=== PATIENT | female | born 1960 | race Caucasian/White ===

== ENCOUNTER → 2021-05-25 14:08 | Outpatient (CLI) | payer MEDICARE, SELFPAY ==
[2021-05-25 17:15] LABS: Absolute Neutrophil Count 6.1 X10^3/uL (2.0-7.7); Basophil# 0.04 X10^3/uL; Basophil% 0.4 % (0-1); Eosinophil# 0.16 X10^3/uL; Eosinophils% 1.7 % (0-5); Hematocrit 40.2 % (37-47); Hemoglobin 12.6 g/dL (12.0-15.0); Lymphocyte % 22.8 % (19-41); Mean Corp Hgb Conc 31.3 g/dL (32-36); Mean Corpuscular Hgb 29.5 pg (27.0-32.0); Mean Corpuscular Volume 94.1 fL (81-99); Mean Platelet Vol. 10.2 fl (6.2-12.0); Monocyte# 0.76 X10^3/uL; Monocyte% 8.2 % (0-10); NRBC Flagged by Analyzer 0 % (0-5); Neutrophil # 6.11 X10^3/uL (2.7-7.7); Neutrophil % 66.4 % (47-70); Platelet Count 282 K/mm3 (150-450); RBC Distribution Width CV 12.8 % (11.6-14.6); RBC Distribution Width SD 44.2 fl (35.1-43.9); Red Blood Count 4.27 M/mm3 (4.2-5.4); White Blood Count 9.2 K/mm3 (4.4-11.0)
[2021-05-25 17:49] LABS: Anion Gap 6 (5-15); BUN 13 mg/dL (7-18); BUN/Creat Ratio 14.8 RATIO (10-20); Calcium,Total 9.3 mg/dL (8.5-10.1); Chloride 109 mmol/L (98-107); Creatinine, Serum 0.88 mg/dL (0.55-1.02); EST Glomerular Filtration Rate 69 mL/min (>60); Est Glom Filt Rate - Afr Amer 84 mL/min (>60); Glucose 93 mg/dL (74-106); Potassium 3.6 mmol/L (3.5-5.1); Sodium Level 142 mmol/L (136-145)
== END ==
PROVIDERS: PCP Internal Medicine; Visit Provider Internal Medicine Cardiovascular Disease
DX: C50.912 Malignant neoplasm of unspecified site of left female breast (principal); E11.9 Type 2 diabetes mellitus without complications; E66.9 Obesity, unspecified; E78.5 Hyperlipidemia, unspecified; I10 Essential (primary) hypertension; R07.9 Chest pain, unspecified; R94.39 Abnormal result of other cardiovascular function study
CPT/HCPCS: 36415; 80048; 85025

== ENCOUNTER 2022-03-24 15:34 | Emergency (ER) | payer MEDICARE, MEDICAID, SELFPAY ==
[2022-03-24 15:36] VITALS: BP 163/95; PULSE 96; RESP 14; TEMP 36.1; O2SAT 96; BMI 32.9
--- NOTE | 2022-03-24 15:44 | ED.VIS.GI ---
HPI HPI - GI History of Present Illness Chief Complaint: Flank Pain Narrative Narrative: Patient with past medical history of depression, hypertension, hypercholesterolemia, and diabetes presents with left flank pain that began suddenly 3 days ago. She thought she may have pulled a muscle in her flank. It worsened today. She went to the [facility] care where they did a urinalysis and was told she had microscopic blood in her urine. She presents with symptoms of kidney stone pain. She denies any exacerbating or alleviating factors to her left flank pain. No fevers or chills. No nausea or vomiting. No gross hematuria but she may be going more frequently. She denies any problems with bowel movements. [facility] Medical History Abnormal nuclear stress test Cancer of left breast Encounter for screening for COVID-19 Essential hypertension Hyperlipidemia Obesity Type 2 diabetes mellitus Home Medications aspirin 81 mg tablet,delayed release (Adult Low Dose Aspirin) 81 mg PO DAILY 05/24/21 [History Last Taken Unknown] atorvastatin 10 mg tablet 5 mg PO QHS 05/24/21 [History Last Taken Unknown] bupropion HCl 200 mg tablet,12 hr sustained-release (Wellbutrin SR) 200 mg PO BID 05/24/21 [History Last Taken Unknown] buspirone 30 mg tablet 30 mg PO BID 05/24/21 [History Last Taken Unknown] enalapril maleate 5 mg tablet 5 mg PO DAILY 05/24/21 [History Last Taken Unknown] exenatide (Byetta) 5 mcg subcut BID 05/24/21 [History Last Taken Unknown] metoprolol succinate 25 mg tablet,extended release 24 hr 25 mg PO DAILY 05/24/21 [History Last Taken Unknown] vilazodone 40 mg tablet 40 mg PO DAILY 05/24/21 [History Last Taken Unknown] levofloxacin 750 mg tablet 750 mg PO DAILY #7 tabs 03/24/22 [Rx Last Taken Unknown] Allergy/AdvReac Type Severity Reaction Status Date / Time azithromycin Allergy unknown Verified 03/24/22 15:36 Penicillins Allergy unknown Verified 03/24/22 15:36 Sulfa (Sulfonamide Allergy unknown Verified 03/24/22 15:36 Antibiotics) Family History Father Myocardial infarction, Onset Age: 40 CAD (coronary artery disease) Sister CAD (coronary artery disease), Onset Age: 39 Sister CAD (coronary artery disease), Onset Age: 42 Brother Myocardial infarction, Onset Age: 58 Surgical History History of lumpectomy Social History Smoking Status: Former smoker ROS ROS ED ROS Narrative Constitutional: No fever, no chills. HEENT: No sore throat. No neck pain. No loss of vision. No rhinorrhea. Cardiovascular: No chest pain. No palpitations. No pedal edema. Respiratory: No cough, no shortness of breath. Abdominal: No abdominal pain. No nausea. No vomiting. Genitourinary: No dysuria. No gross hematuria. Left flank pain radiating towards front. Musculoskeletal: No myalgias. No arthralgias. Neurologic: No headaches. No dizziness. No lightheadedness. Skin: No rash. No change in color. Psychiatric: No depression. No anxiety. EXAM Physical Exam Narrative Exam Narrative: Afebrile. Vital signs noted. HEENT: Normocephalic. Atraumatic. PERRL, EOMI. Neck soft and supple. No point tenderness or step off. Cardiovascular: Regular rate and rhythm. No murmurs, rubs, or gallops appreciated. Respiratory: No tachypnea. Lungs clear to auscultation bilaterally. Gastrointestinal: Abdomen soft, nontender, with normoactive bowel sounds. No rebound or guarding. Mild tenderness to percussion costovertebral angle, left Neurological: Awake. Alert. Nonfocal, nonlateralizing. Skin: No rash. Normal color. No pallor. Musculoskeletal: No pedal edema. Full range of motion extremities. Const Vital Signs: 03/24/22 15:36 Temperature 96.9 F L Temperature Source Temporal Pulse Rate 96 Respiratory Rate 14 Blood Pressure 163/95 H Blood Pressure Mean 117 Pulse Ox 96 Oxygen Delivery Method Room Air MDM MDM MDM Narrative Medical decision making narrative: Kidney stone work-up was pursued. She was bolused normal saline [address] imaging will be obtained along with CBC and CMP. She was administered ketorolac 15 mg intravenously for analgesia. CBC is grossly normal with a normal white count of 9.0, normal hemoglobin of 12.4, platelet count normal at 273. Electrolyte panel is grossly unremarkable except for slightly elevated chloride of 108. Creatinine 1.1 with a BUN of 11. Her urinalysis macro analysis is negative for ketones. It is negative for nitrites but positive for leukocyte esterase. There is occult blood noted at 25. However, her microanalysis shows 0-5 RBCs with 10-25 WBCs. CAT scan does not show any evidence of ureterolithiasis. The urinary bladder has wall thickening which can be related to contractile state versus cystitis. I will treat her as a cystitis. She has allergies to azithromycin, penicillins, and sulfas, so I wrote her prescription for Levaquin for the next week. At this point in time, I feel she can be discharged safely home with follow-up. Return instructions to the emergency department were reviewed. Disposition is discharged home in stable condition. Lab Data Attestation: I reviewed the patient's lab results. Labs: Laboratory Results - last 24 hr 03/24/22 03/24/22 03/24/22 16:02 16:02 16:30 WBC 9.0 RBC 4.00 L Hgb 12.4 Hct 37.3 MCV 93.3 MCH 31.0 MCHC 33.2 RDW Std Deviation 43.6 RDW Coeff of Raghavendra 12.8 Plt Count 273 MPV 9.7 Immature Gran % (Auto) 0.400 Neut % (Auto) 59.8 Lymph % (Auto) 29.7 Garfield % (Auto) 8.1 Eos % (Auto) 1.4 Baso % (Auto) 0.6 Absolute Neuts (auto) 5.4 Absolute Lymphs (auto) 2.66 Nucleated RBC % 0 Sodium 141 Potassium 3.8 Chloride 108 H Carbon Dioxide 27.0 Anion Gap 6 BUN 11 Creatinine 1.17 H Estim Creat Clear Calc 40.71 Est GFR (MDRD) Af Amer 60 Est GFR (MDRD) Non-Af 50 L BUN/Creatinine Ratio 9.4 L Glucose 132 H Calcium 9.2 Urine Color Yellow Urine Clarity Clear Urine pH 6.0 Ur Specific [place] 1.020 Urine Protein Negative Urine Glucose (UA) Normal Urine Ketones Negative Urine Occult Blood 25 H Urine Nitrite Negative Urine Bilirubin Negative Urine Urobilinogen Normal Ur Leukocyte Esterase 100 H Urine RBC 0-5 SEEN Urine WBC 10-25 SEEN Ur Squamous Epith Cells 0-5 SEEN Urine Bacteria 1+ Urine Mucus 1+ Radiography Diagnostic Testing: Clinical Impression(s) from Imaging Studies Abdomen/Pelvis CT 03/24/22 17:00 IMPRESSION: (NOT LISTED IN ORDER OF SIGNIFICANCE) Urinary bladder wall has wall thickening. This can be related to a partially contractile state. However, a cystitis is not excluded. Urinalysis should be performed in an effort to exclude cystitis. There are calcifications of the abdominal aorta. This is consistent for atherosclerotic disease. There is no abdominal aortic aneurysm. Hysterectomy changes. There is hepatomegaly with diffuse hepatic enlargement. Other findings as above. Electronically Signed: Kenyon Nieto MD at 17:16 EDT , Discharge Plan Triage Chief Complaint: Flank Pain ED Provider: Anthony Coronado Dx/Rx/DC Orders Clinical Impression: Acute left flank pain, Cystitis Instructions: ED Flank Pain, Uncertain Cause, ED CYSTITIS Female Adult Prescriptions: New levofloxacin 750 mg tablet 750 mg PO DAILY Qty: 7 0RF No Action bupropion HCl [Wellbutrin SR] 200 mg tablet sustained-release 12 hr 200 mg PO BID metoprolol succinate 25 mg tablet extended release 24 hr 25 mg PO DAILY buspirone 30 mg tablet 30 mg PO BID enalapril maleate 5 mg tablet 5 mg PO DAILY Byetta 5 mcg/dose (250 mcg/mL) 1.2 mL pen injector 5 mcg subcut BID vilazodone 40 mg tablet 40 mg PO DAILY Rx Instructions: must administer with a meal/food atorvastatin 10 mg tablet 5 mg PO QHS aspirin [Adult Low Dose Aspirin] 81 mg tablet,delayed release (DR/EC) 81 mg PO DAILY Primary Care Provider: Rena Alexander Referrals: Rena Alexander MD [Primary Care Provider] - 3-5 Days if not improving Disposition Disposition: Home, Self Care
[2022-03-24] MEDS: Ketorolac 15 MG/ML Vial IV (16:09)
[2022-03-24] MEDS: 0.9% Normal Saline 1,000 ML 250 ML IV (16:09)
[2022-03-24] MEDS: Morphine 4 MG/ML Syringe IV (16:22)
[2022-03-24 16:30] LABS: Absolute Lymphocyte Count 2.66 X10^3/uL (0.83-4.51); Absolute Neutrophil Count 5.4 X10^3/uL (2.0-7.7); Basophil# 0.05 X10^3/uL; Basophil% 0.6 % (0-1); Eosinophil# 0.13 X10^3/uL; Eosinophils% 1.4 % (0-5); Hematocrit 37.3 % (37-47); Hemoglobin 12.4 g/dL (12.0-15.0); Lymphocyte # 2.66 X10^3/ul (0.83-4.51); Lymphocyte % 29.7 % (19-41); Mean Corp Hgb Conc 33.2 g/dL (32-36); Mean Corpuscular Volume 93.3 fL (81-99); Mean Platelet Vol. 9.7 fl (6.2-12.0); Monocyte# 0.73 X10^3/uL; Monocyte% 8.1 % (0-10); NRBC Flagged by Analyzer 0 % (0-5); Neutrophil # 5.36 X10^3/uL (2.7-7.7); Neutrophil % 59.8 % (47-70); Platelet Count 273 K/mm3 (150-450); RBC Distribution Width CV 12.8 % (11.6-14.6); RBC Distribution Width SD 43.6 fl (35.1-43.9)
[2022-03-24 16:37] LABS: Anion Gap 6 (5-15); BUN 11 mg/dL (7-18); BUN/Creat Ratio 9.4 RATIO (10-20); Calcium,Total 9.2 mg/dL (8.5-10.1); Chloride 108 mmol/L (98-107); Creatinine, Serum 1.17 mg/dL (0.55-1.02); EST Glomerular Filtration Rate 50 mL/min (>60); Est Glom Filt Rate - Afr Amer 60 mL/min (>60); Estimated Creatinine Clearance 40.71 ml/min; Glucose 132 mg/dL (74-106); Potassium 3.8 mmol/L (3.5-5.1); Sodium Level 141 mmol/L (136-145)
[2022-03-24 16:53] LABS: Color, Urine Yellow (Yellow); Glucose, Dipstick Normal (Normal); Ketone-Dipstick Negative (Negative); Leukocyte Esterase-Dipstick 100 /ul (Negative); Nitrite-Dipstick Negative (Negative); Occult Blood-Urine 25 /ul (Negative); Protein-Dipstick Negative (Negative); Urine Bilirubin Dipstick Negative (Negative); Urine Clarity Clear (Clear); Urine Urobilinogen Normal (Normal)
--- NOTE | 2022-03-24 17:00 | CT_ITS ---
STUDY: CT Abdomen And Pelvis W/O Contrast Injection 03/24/2022 5:14 PM REASON FOR EXAM: Female, 62 years old. ABDOMINAL PAIN left flank pain TECHNIQUE: Transaxial images were obtained without oral contrast, and without intravenous contrast. Individualized dose optimization techniques were used for this CT. COMPARISON: None. FINDINGS: The visualized lung bases are unremarkable. The visualized portions of the heart are within normal limits. There is hepatomegaly with diffuse hepatic enlargement. Unremarkable gallbladder and extrahepatic biliary system. Unremarkable spleen. Unremarkable pancreas. Unremarkable bilateral adrenal glands. No acute findings of the right kidney. No acute findings of the left kidney. Unremarkable visualized stomach. Unremarkable small intestine. Unremarkable colon. There is non-visualization of the appendix. There are calcifications of the abdominal aorta. This is consistent for atherosclerotic disease. There is no abdominal aortic aneurysm. Unremarkable inferior vena cava. Subcentimeter mesenteric lymph nodes. Urinary bladder wall has wall thickening. This can be related to a partially contractile state. However, a cystitis is not excluded. Urinalysis should be performed in an effort to exclude cystitis. There is absence of the uterus consistent with a prior hysterectomy. There is an umbilical hernia containing fat. There are diffuse degenerative changes of the visualized lumbar spine. Grade 1 anterolisthesis of L4 on L5. CT/Abdomen/Pelvis without Cont IMPRESSION: (NOT LISTED IN ORDER OF SIGNIFICANCE) Urinary bladder wall has wall thickening. This can be related to a partially contractile state. However, a cystitis is not excluded. Urinalysis should be performed in an effort to exclude cystitis. There are calcifications of the abdominal aorta. This is consistent for atherosclerotic disease. There is no abdominal aortic aneurysm. Hysterectomy changes. There is hepatomegaly with diffuse hepatic enlargement. Other findings as above. Electronically Signed: Kenyon Nieto MD at 17:16 EDT ,
[2022-03-24 17:16] LABS: Red Blood Cells-Urine 0-5 SEEN /hpf (0-5); Squamous Epithelial Cells - UA 0-5 SEEN /hpf (5-10); White Blood Cells 10-25 SEEN /hpf (0-5)
[2022-03-24 17:17] LABS: Bacteria 1+ /hpf (None Seen); Mucous, Urine 1+ /hpf (<or=2+)
[2022-03-24 17:48] VITALS: PULSE 78; O2SAT 98
== END 2022-03-24 17:48 | disposition home or self-care (01) ==
PROVIDERS: Emergency Provider Emergency Medicine; PCP Internal Medicine; Visit Provider Emergency Medicine
DX: R10.9 Unspecified abdominal pain (principal); N30.90 Cystitis, unspecified without hematuria; Z87.891 Personal history of nicotine dependence
CPT/HCPCS: 74176; 80048; 81001; 85025; 96361; 96374; 96375; 99283; J7030

== ENCOUNTER → 2022-06-07 | Outpatient (CLI) | payer MEDICARE, MEDICAID, SELFPAY ==
[2022-06-07 13:00] LABS: Hemoglobin A1c 6.7 % (3.8-5.6)
[2022-06-08 16:31] LABS: Fructosamine 211 umol/L (0-285)
== END | disposition home or self-care (01) ==
LOC: BIMLAB 11:13
PROVIDERS: PCP Internal Medicine; Referring Provider Orthopaedic Surgery; Visit Provider Orthopaedic Surgery
DX: E11.9 Type 2 diabetes mellitus without complications (principal)
CPT/HCPCS: 36415; 82985; 83036

== ENCOUNTER → 2022-09-26 | Outpatient (CLI) | payer MEDICARE, MEDICAID, SELFPAY ==
--- NOTE | 2022-10-04 13:56 | EKG12_ITS ---
Test Reason : PREOP Blood Pressure : / mmHG Vent. Rate : 086 BPM Atrial Rate : 086 BPM P-R Int : 156 ms QRS Dur : 068 ms QT Int : 356 ms P-R-T Axes : 036 030 037 degrees QTc Int : 426 ms Normal sinus rhythm Low voltage QRS Borderline ECG Confirmed by TE HUANG, JEAN MARIE ([id number]), metropolitan editor PETR JACINTO ([id number]) on 10/05/2022 9:45:49 AM Referred By: Reynold Dunlap Confirmed By:JEAN MARIE TIWARI MD
--- NOTE | 2022-10-04 14:20 | RAD_ITS ---
HISTORY: PREOP -- HX OF BREAST CA WITH RADIATION. TECHNIQUE: XR Chest 2 Views. COMPARISON: None. FINDINGS: CARDIOMEDIASTINAL BORDERS: Cardiac silhouette within normal limits in size. Mediastinal contour unremarkable. LUNGS: Radiographically clear. PLEURA: No pleural effusion or pneumothorax seen. OSSEOUS STRUCTURES: Degenerative change. Calcific tendinitis of the right shoulder. RAD/Chest PA and Lateral IMPRESSION: No acute cardiopulmonary process identified. Electronically Signed: Ingris Jones MD at 14:40 EST ,
[2022-10-04 15:08] LABS: Absolute Lymphocyte Count 2.82 X10^3/uL (0.83-4.51); Absolute Neutrophil Count 3.5 X10^3/uL (2.0-7.7); Basophil# 0.07 X10^3/uL; Eosinophil# 0.24 X10^3/uL; Eosinophils% 3.3 % (0-5); Hematocrit 42.4 % (37-47); Hemoglobin 13.5 g/dL (12.0-15.0); Lymphocyte # 2.82 X10^3/ul (0.83-4.51); Mean Corp Hgb Conc 31.8 g/dL (32-36); Mean Corpuscular Hgb 29.2 pg (27.0-32.0); Mean Corpuscular Volume 91.8 fL (81-99); Mean Platelet Vol. 9.5 fl (6.2-12.0); Monocyte# 0.62 X10^3/uL; Monocyte% 8.6 % (0-10); NRBC Flagged by Analyzer 0 % (0-5); Neutrophil # 3.47 X10^3/uL (2.7-7.7); Neutrophil % 47.8 % (47-70); Platelet Count 298 K/mm3 (150-450); RBC Distribution Width CV 13.1 % (11.6-14.6); RBC Distribution Width SD 43.8 fl (35.1-43.9); Red Blood Count 4.62 M/mm3 (4.2-5.4); White Blood Count 7.2 K/mm3 (4.4-11.0)
[2022-10-04 15:25] LABS: Hemoglobin A1c 6.4 % (3.8-5.6); Partial Thromboplast Time 25.8 Seconds (24.1-36.2)
[2022-10-04 15:58] LABS: Anion Gap 4 (5-15); BUN 18 mg/dL (7-18); BUN/Creat Ratio 15.4 RATIO (10-20); Calcium,Total 9.1 mg/dL (8.5-10.1); Chloride 107 mmol/L (98-107); Creatinine, Serum 1.17 mg/dL (0.55-1.02); EST Glomerular Filtration Rate 50 mL/min (>60); Est Glom Filt Rate - Afr Amer 60 mL/min (>60); Glucose 80 mg/dL (74-106); Potassium 3.9 mmol/L (3.5-5.1); Sodium Level 140 mmol/L (136-145)
[2022-10-04 16:11] LABS: AST(SGOT) 15 U/L (15-37); Alanine Aminotransfer ALT/SGPT 22 U/L (13-56); Alkaline Phosphatase 119 U/L (45-117); Bilirubin, Direct 0.17 mg/dL (0.00-0.30); Globulin 2.9 g/dL (2.2-4.2); Magnesium 2.2 mg/dL (1.6-2.6); Protein, Total 6.9 g/dL (6.4-8.2)
[2022-10-06 20:05] LABS: Fructosamine 209 umol/L (0-285)
== END | disposition home or self-care (01) ==
LOC: PAT 10-10 16:52
PROVIDERS: Anesthesiology; PCP Internal Medicine; Referring Provider Orthopaedic Surgery; Visit Provider Orthopaedic Surgery
DX: Z01.818 Encounter for other preprocedural examination (principal); M75.31 Calcific tendinitis of right shoulder
CPT/HCPCS: 36415; 71046; 80048; 80076; 82985; 83036; 83735; 85025; 85610; 85730; 86850; 86900; 86901; 87081; 93005; J7050

== ENCOUNTER → 2022-09-29 | Outpatient (CLI) | payer MEDICARE, MEDICAID, SELFPAY ==
--- NOTE | 2022-09-29 12:42 | CT_ITS ---
PROCEDURE: CT RIGHT KNEE WITHOUT CONTRAST REASON FOR EXAM: Female, 62 years old. Preoperative planning for the [employer] Robotic knee surgery. Knee pain. TECHNIQUE: Transaxial CT of the hip, knee and ankle were obtained. Coronal and sagittal reconstruction images of the knee were provided. Individualized dose optimization techniques were used for this CT. COMPARISON: None. FINDINGS: Standard protocol for the preoperative planning for the [employer] robotic knee surgery was performed. There is mild osteoarthrosis of the hip and knee. CT/Extremity Lower without Contra IMPRESSION: Preoperative M[employer] Robotic knee surgical CT evaluation with findings as described above. Electronically Signed: William Brown, at 14:08 EST ,
== END | disposition home or self-care (01) ==
LOC: CT 12:41
PROVIDERS: PCP Internal Medicine; Visit Provider Orthopaedic Surgery
DX: Z01.818 Encounter for other preprocedural examination (principal); M16.10 Unilateral primary osteoarthritis, unspecified hip; M17.12 Unilateral primary osteoarthritis, left knee
CPT/HCPCS: 73700

== ENCOUNTER 2022-11-07 10:47 | Observation (INO) | payer MEDICARE, MEDICAID, SELFPAY ==
[2022-11-07] VITALS (16 sets, daily range): BP systolic 110–160; BP diastolic 47–86; PULSE 85–119; RESP 16–20; TEMP 36.2–37.3; O2SAT 95–110; BMI 30.5
[2022-11-07] MEDS: Lactated Ringers 1,000 ML 125 ML IV ×4 (06:25→18:23)
[2022-11-07] MEDS: Magnesium 1 GM over 15 mins IV (06:27)
[2022-11-07] MEDS: Acetaminophen 500 MG Tablet 1000 MG PO ×3 (06:31→20:39)
[2022-11-07] MEDS: Scopolamine 1mg/72hr Patch 1 PATCH TD (06:31)
[2022-11-07] MEDS: Gabapentin 600 MG Tablet PO (06:31)
[2022-11-07] MEDS: Insulin Lispro 100 UNIT/ML INSULN.PEN SC ×4 (06:42→20:30)
--- NOTE | 2022-11-07 07:25 | PCM.HP.BLA ---
History and Physical Date of Admission: 11/07/22 [facility] [address] [place] [address] OFFICE VISIT Date of Service:? 10/20/22 MR#: [id number] Acct: [id number] Name:LISS LAU Rep #: [id number] : 1960 ? ? Provider: Dr. Reynold Dunlap, DO Age/Sex:? 62/F ? ? Location: [facility] [place] Status: Signed Intake Vital Signs ? 05/31/2210:29 Height 5 ft 3 in Intake Visit Reasons:?knee pain Is patient in pain?: Yes Pain scale (1-10): 7 Allergies Penicillins Allergy (Severe, Verified 10/20/22 09:29) throat swellsazithromycin Allergy (Verified 10/20/22 09:29) DiarrheaSulfa (Sulfonamide Antibiotics) Allergy (Verified 10/20/22 09:29) blisters Medications aspirin 81 mg tablet,delayed release (Adult Low Dose Aspirin) 81 mg PO DAILY 05/24/21 [History Confirmed 10/20/22] bupropion HCl 200 mg tablet,12 hr sustained-release (Wellbutrin SR) 200 mg PO BID 05/24/21 [History Confirmed 10/20/22] buspirone 30 mg tablet 30 mg PO BID 05/24/21 [History Confirmed 10/20/22] enalapril maleate 5 mg tablet 5 mg PO DAILY 05/24/21 [History Confirmed 10/20/22] exenatide 5 mcg/dose (250 mcg/mL)1.2 mL subcutaneous pen injector (Byetta) 5 mcg subcut BID 05/24/21 [History Confirmed 10/20/22] vilazodone 40 mg tablet 40 mg PO DAILY 05/24/21 [History Confirmed 10/20/22] alprazolam 0.25 mg tablet 0.25 mg PO BID PRN Anxiety 09/26/22 [History Confirmed 10/20/22] rosuvastatin 5 mg tablet (Crestor) 5 mg PO QHS 09/26/22 [History Confirmed 10/20/22] PFSH Medical History? Abnormal nuclear stress test Anxiety Cancer Cancer of left breast Cardiology follow-up encounter Depression Diabetes Dietary restriction Easy bruising Encounter for screening for COVID-19 Essential hypertension Former smoker High cholesterol History of echocardiogram History of pain when walking History of stress test Hyperlipidemia Hypertension Obesity Post-menopausal Shortness of breath on exertion Type 2 diabetes mellitus Varicose vein of leg Wears glasses Surgical History? History of History of hysterectomy History of incision and drainage History of lumpectomy Family History? Father Myocardial infarction,? Onset Age: 40 CAD (coronary artery disease)Sister CAD (coronary artery disease),? Onset Age: 39Sister CAD (coronary artery disease),? Onset Age: 42Brother Myocardial infarction,? Onset Age: 58 Social History? Smoking Status:? Former smoker HPI knee pain Details: Parts of this documentation were recorded by a scribe, this documentation accurately reflects the service provided and the decisions made by me, Dr. Reynold Dunlap, DO 10/20/22 09. LISS SHARPE is a 62 year old F here today for left knee pain. States that she was told by the insurance company that because she hasn't seen you in 3 months that she needed to come see you then send today's note and submit an appeal. States that she is just here so she can get her surgery approved. States that she has noticed more popping in her knee. States that her knee will lock and pop out. PAtient has tried and failed PT, steroid injection, viscosupleemtnation and bracing therefore wishes to proceed with TKA. Ortho Exam General General: Yes no acute distress Neurologic: Yes alert and Yes oriented x3 Psychologic: Yes reasonable and appropriate Left Knee Skin/Wound: Yes CDI, No ecchymosis, No erythema and No swelling Homans Sign: No Knee ROM: No ROM-Extension -20 to 0 (lacking 4) and No ROM-Flexion 0-140 (123) Examination: Yes med jt line tenderness, Yes Lat jt line tenderness and Yes Crepitus Stability: NML: Anterior Drawer, NML: Posterior Drawer and NML: Varus 30 and 1+: Valgus 30 (3mm medial gapping d/t joint space narrowing) KNEE: no joint effusion intact sensation to light touch Supplemental Info 05/31/2022 x-ray left knee: Advanced knee arthrosis [id number] medial compartment moderate patellofemoral arthrosis Coding Level of Care Code Off vis,est,level 3 Diagnoses Left knee DJD? M17.12 Assessment and Plan Assessment and Plan (1) Left knee DJD: ?Status:?Acute Plan Patient wishes to proceed with TKA.?Risks, benefits and alternatives of surgery reviewed including but not limited to bleeding, infection, nerve, artery and/or tissue damage, fracture, VTE, mechanical feel of the knee, continued pain, stiffness and expected post-operative course. She wishes to proceed with left TKA DOS: 11/07/2022. Follow up after surgery or sooner if pain, swelling, numbness or associated symptoms, or concerns develop.? All questions answered. Patient in agreement of plan. 10/20/22 1030 <Electronically signed by Reynold Dunlap DO> Date Reynold Dunlap DO Cosigndonato Signature: Date (if applicable) ? CC: ? ~ I have examined the patient and the H&P has been reviewed. There are no clinical changes since date of exam.
[2022-11-07 07:30] LABS: Bedside Glucose 181 mg/dL (74-106)
--- NOTE | 2022-11-07 08:15 | KNEE_PTH ---
PATIENT: LISS SHARPE LOC: MS3 U#:[id number] AGE/SX: 62/F ROOM: [facility] RE11/07/[address]: Dr. Reynold Dunlap DO : 1960 BED: 1 DIS: 11/10/2022 SPEC #: [id number] RECD: 11/07/22 14:00 STATUS: JUVENAL BENIGNO #: [id number] GILMA: 11/07/22 08:[address]: Reynold Dunlap DEPT: SURGICAL PATHOLOGY RECD BY: Rickie Reaves ENTERED: 11/08/22 08:53 SP TYPE: TOTAL KNEE OTHR DR: Dr. Rena Alexander MD Tissues: Knee, NOS Procedures: Decalcification bone/plaque Surgery Specimen Level IV HEADER OPERATION: ERAS, total knee replacement robotic arm assist PRE-OP DIAGNOSIS: Left knee DJD TISSUE SUBMITTED: Bone and soft tissue from left knee MICROSCOPIC DIAGNOSIS Bone and soft tissue, left knee, total knee replacement/resection: Pieces of bone with degenerative osteoarthritic changes. Fibroadipose tissue, fibroconnective tissue and reactive synovial tissue. TONY:gricel 11/13/2022 MICROSCOPIC DESCRIPTION Slides are reviewed. GROSS DESCRIPTION Received is one container designated bone and soft tissue left knee. The specimen consists of multiple fragments of blanton-yellow bone measuring in aggregate 10 x 9 x 3 cm. Also in the specimen container are multiple fragments of yellow-white soft tissue measuring in aggregate 7 x 7 x 2.5 cm. A number of bony fragments contain articular surfaces consistent with tibial plateau and femoral condyle and displaying prominent osteophyte formation, eburnation, and bone erosion. In Flight Refueling Operator sections are submitted in two cassettes as follows: 1 - soft tissue, 2 - bone after decalcification. / TONY:gricel 11/08/2022 :5 CPT: 24234, 35437
[2022-11-07] MEDS: TXA 1000mg in NS100 100ml (IVPB at Incision) 660 MG IV (08:18)
[2022-11-07] MEDS: TXA 1000mg in NS100 100ml (IVPB at Closure) 660 MG IV (09:19)
[2022-11-07] MEDS: Epinephrine (1 mg/ml) 1 MG/ML VIAL (09:23)
[2022-11-07] MEDS: dexAMETHasone 4 MG/ML Vial (09:24)
[2022-11-07] MEDS: Bupivacaine Mpf 0.5% 30 ML VIAL (09:26)
[2022-11-07] MEDS: 0.9% Normal Saline (Pres. free 10 ML Vial (09:27)
[2022-11-07] MEDS: dexAMETHasone 10 MG/ML Vial IV (09:36)
--- NOTE | 2022-11-07 10:39 | RAD_ITS ---
STUDY: X-RAY - LEFT KNEE REASON FOR EXAM: Female, 62 years old. Post op -- AP and Lateral xray of operative knee in PACU TECHNIQUE: 2 view(s) of the knee. COMPARISON: Comparison is made with prior study dated 05/31/2002. FINDINGS: Normal visualized distal femur. Normal visualized proximal tibia and fibula. Normal proximal tibiofibular articulation. The patient is status post total knee replacement. There is good alignment. Postoperative soft tissue changes. RAD/Knee 1 or 2 Views IMPRESSION: Status post total knee replacement. There is good alignment. Postoperative soft tissue changes. Electronically Signed: Avelino Zuleta MD at 12:46 EST ,
--- NOTE | 2022-11-07 10:44 | OP.PCM_ITS ---
Operative Report Date of Procedure: 11/07/22 Preoperative diagnosis: Left knee DJD Postoperative diagnosis: Same Procedure: Left total knee arthroplasty CT guided Robotic Assisted Implant: Shiva triathlon press fit, femoral component size2, tibial baseplate size 3, asymmetric patella size 32, polyethylene X3 size 11 CS Anesthesia: Spinal with adductor canal block Tourniquet time: 0 minutes at 300 mmHg Complications: None Condition: Stable to PACU Estimated blood loss: 225 cc Indication for procedure: This is a 62-year-old female with long standing degenerative joint disease of the knee who has failed conservative treatment and wished to proceed with elective total knee arthroplasty. Risk benefits and alternatives were reviewed including; risk of bleeding, infection, nerve artery and tissue damage, continued pain, postoperative stiffness, venous thromboembolism, need for postoperative rehabilitation, mechanical feel to the knee, and expected postoperative course. The pre- operative CT and templating was performed with component sizing. Procedure: The patient was met in the preoperative holding area. The operative extremity was identified by both patient and physician and was marked. Patient was met by anesthesia. An adductor canal block was placed by anesthesia postoperatively the patient was brought back to the operating room on a wheeled cart and transferred to the operating table in the supine position. Anesthesia was started. A well-padded tourniquet was placed on the operative extremity but was not inflated during the case. the patient was prepped and draped in the usual sterile fashion. A timeout was called to ensure the proper patient procedure and extremity were being contemplated. A 10 blade scalpel was used to make a midline incision down through the skin and subcutaneous tissue. Skin retractors placed. Bovie and Aquamantis were used to perform meticulous hemostasis. full-thickness flaps were elevated medial and lateral along the joint capsule. A deep blade scalpel was used to perform a medial parapatellar arthrotomy. The knee was brought to full extension. A bovie was used to release the soft tissues off the most proximal aspect of the medial tibial plateau, a three-quarter inch curved osteotome was also used in this process. The infrapatellar fat pad was excised. The suprapatellar fat pad was excised partially anteriorolateraly and portion the anterioromedial pad was elevated from the femur. At this point our intra-articular femoral array was placed at a 45 degree angle proximal and posterior to the medial epicondyle. femoral checkpoint was placed at this time. Our tibial array was placed greater than 1 hands breath below the incision at a 20 degree angle stab incisions were made with a 15 blade scalpel and pins were placed and attached to the tibial array , tibial checkpoint was placed in the proximal tibial metaphysis. Tourniquet was let down. At this point registration vasques were taken throughout the knee . Once the knee was registered we then tensioned the medial and lateral ligaments in extension and 90 degrees of flexion. We then used these numbers to adjust our components within parameters to balance the knee in both flexion and extension once this was done on our monitor we then proceeded with using the robotic arm to make our tibial plateau cut, anterior and posterior chamfer and distal femur cuts. we removed the cut fragments with the use of a bovie and Bhupendra, we did use a lamina director talent to insure we visualized and removed all posterior osteophytes and at this time also used the Aquamantis on the posterior joint capsule. we then trialed and achieved the desired plan with a well- balanced knee. we used the green probe to carmelo the corresponding tibial rotation based on our CT template. Lug holes were drilled in the femur the tibia preparation was completed with the appropriate sized base plate pinned based on previous rotation carmelo. An appropriate sized fin punch was used on the tibia and 4 corner drill was used for the press fit component and the patella was prepared by first using a caliper to ensure sufficient bone stock and a patellar reamer to remove the desired amount of bone. lug holes drilled for an asymmetric poly. We then brought the knee through range of motion with excellent patellar tracking. We thoroughly irrigated the knee. Trial components were removed a posterior capsular injection was preformed with our standard cocktail. In addition the aqua Mantis was also used to aid in hemostasis. Betadine rinse was allowed to sit and washed out completely. Components were press-fit into place. Aricept rinse was then used followed by several more liters of irrigation after it was allowed to sit. The joint capsule was closed with #1 Ethibond [id number] followed by Vicryl in the subcutaneous tissues with matthew in the skin. Arrays and checkpoints were removed prior to closure all counts were correct stab incisions were closed with a staple standard dressing in the form of Mepilex AG for the main incision and a small Mepilex over the pin holes. Thigh-high JULEE hose applied over top of dressing. Patient tolerated the procedure well and was directed to PACU in stable condition . There were no intraoperative complications.
[2022-11-07 14:10] LABS: Bedside Glucose 185 mg/dL (74-106)
[2022-11-07 16:33] LABS: Anion Gap 8 (5-15); BUN 13 mg/dL (7-18); BUN/Creat Ratio 9.4 RATIO (10-20); Calcium,Total 8.4 mg/dL (8.5-10.1); Chloride 109 mmol/L (98-107); Creatinine, Serum 1.39 mg/dL (0.55-1.02); EST Glomerular Filtration Rate 41 mL/min (>60); Est Glom Filt Rate - Afr Amer 49 mL/min (>60); Estimated Creatinine Clearance 34.27 ml/min; Glucose 269 mg/dL (74-106); Potassium 4.2 mmol/L (3.5-5.1); Sodium Level 142 mmol/L (136-145)
[2022-11-07] MEDS: oxyCODONE 5 MG Tablet PO ×2 (16:40→20:39)
[2022-11-07 17:05] LABS: Bedside Glucose 243 mg/dL (74-106)
[2022-11-07] MEDS: Vancomycin IV 500 MG/100 ML BAG 100 MG IV (18:30)
[2022-11-07] MEDS: busPIRone 15 MG TABLET 30 MG PO (20:26)
[2022-11-07] MEDS: buPROPion (SR) 100 MG TABLET.SA 200 MG PO (20:27)
[2022-11-07] MEDS: ALPRAZolam 0.25 MG Tablet PO (20:27)
[2022-11-07] MEDS: Senna/Docusate Sodium 1 Tablet 2 TABLET PO (20:27)
[2022-11-07] MEDS: Ondansetron 4 MG/2 ML Vial IV (22:13)
[2022-11-07 22:36] LABS: Bedside Glucose 254 mg/dL (74-106)
[2022-11-08 03:02] VITALS: BP 141/68; PULSE 100; RESP 20; TEMP 36.9; O2SAT 95
[2022-11-08] MEDS: oxyCODONE 5 MG Tablet PO ×5 (03:10→22:45)
[2022-11-08] MEDS: 0.9% Saline Lock 10 ML Syringe IV (03:11)
[2022-11-08 06:05] LABS: Hematocrit 30.7 % (37-47); Hemoglobin 9.9 g/dL (12.0-15.0); Mean Corp Hgb Conc 32.2 g/dL (32-36); Mean Corpuscular Hgb 30.1 pg (27.0-32.0); Mean Corpuscular Volume 93.3 fL (81-99); Mean Platelet Vol. 10.2 fl (6.2-12.0); Platelet Count 232 K/mm3 (150-450); RBC Distribution Width CV 13.2 % (11.6-14.6); RBC Distribution Width SD 45.2 fl (35.1-43.9); Red Blood Count 3.29 M/mm3 (4.2-5.4); White Blood Count 12.8 K/mm3 (4.4-11.0)
[2022-11-08] MEDS: Acetaminophen 500 MG Tablet 1000 MG PO ×3 (06:16→21:44)
[2022-11-08] MEDS: APIXABAN 2.5 MG TABLET (WCH) PO ×2 (06:16→21:45)
[2022-11-08 06:39] LABS: Anion Gap 7 (5-15); BUN 16 mg/dL (7-18); BUN/Creat Ratio 13.7 RATIO (10-20); Calcium,Total 8.5 mg/dL (8.5-10.1); Chloride 107 mmol/L (98-107); Creatinine, Serum 1.17 mg/dL (0.55-1.02); EST Glomerular Filtration Rate 50 mL/min (>60); Est Glom Filt Rate - Afr Amer 60 mL/min (>60); Estimated Creatinine Clearance 40.71 ml/min; Glucose 212 mg/dL (74-106); Potassium 4.7 mmol/L (3.5-5.1); Sodium Level 140 mmol/L (136-145)
[2022-11-08] MEDS: Insulin Lispro 100 UNIT/ML INSULN.PEN SC ×4 (07:36→21:47)
--- NOTE | 2022-11-08 07:59 | PCM.PN.ORT ---
Subjective Subjective Patient seen and examined. States her pain is not well controlled denies shortness of breath chest pain fevers chills nausea vomiting or other complaints she has done some ambulating Objective Data Objective Data Vital Signs: Vital Signs Temp Pulse Resp BP Pulse Ox O2 Del Method O2 Flow Rate 98.4 F 100 20 H 141/68 H 95 Room Air 4 11/08/22 03:02 11/08/22 03:02 11/08/22 03:02 11/08/22 03:02 11/08/22 03:02 11/08/22 03:02 11/07/22 13:00 Oxygen Flow Rate (L/min) 4 Oxygen Delivery Method Room Air Weight: 172 lb 9.951 oz Body Mass Index (BMI) 30.5 Intake & Output: Intake and Output for Last 24 Hours 11/06/22 11/07/22 11/08/22 23:59 23:59 23:59 Intake Total 4055.34 / 4555.34 1856.25 / 1856.25 Balance 4055.34 / 4555.34 1856.25 / 1856.25 Lab / Micro Data Result Diagrams: 11/08/22 04:55 11/08/22 04:55 Labs: Laboratory Results - last 24 hr 11/07/22 13:22: POC Glucose 185 H 11/07/22 16:09: Sodium 142, Potassium 4.2, Chloride 109 H, Carbon Dioxide 25.0, Anion Gap 8, BUN 13, Creatinine 1.39 H, Estim Creat Clear Calc 34.27, Est GFR (MDRD) Af Amer 49 L, Est GFR (MDRD) Non-Af 41 L, BUN/Creatinine Ratio 9.4 L, Glucose 269 H, Calcium 8.4 L 11/07/22 16:39: POC Glucose 243 H 11/07/22 20:17: POC Glucose 254 H 11/08/22 04:55: WBC 12.8 H, RBC 3.29 L, Hgb 9.9 L, Hct 30.7 L, MCV 93.3, MCH 30.1, MCHC 32.2, RDW Std Deviation 45.2 H, RDW Coeff of Raghavendra 13.2, Plt Count 232, MPV 10.2 11/08/22 04:55: Sodium 140, Potassium 4.7, Chloride 107, Carbon Dioxide 26.0, Anion Gap 7, BUN 16, Creatinine 1.17 H, Estim Creat Clear Calc 40.71, Est GFR (MDRD) Af Amer 60, Est GFR (MDRD) Non-Af 50 L, BUN/Creatinine Ratio 13.7, Glucose 212 H, Calcium 8.5 Radiography Diagnostic Testing: Radiology Impression Knee X-Ray 11/07/22 10:39 IMPRESSION: Status post total knee replacement. There is good alignment. Postoperative soft tissue changes. Electronically Signed: Avelino Zuleta MD at 12:46 EST , Physical Exam Const alert, oriented x3 and no apparent distress Extremity Extremity Narrative: Left knee dressing clean dry and intact compartments soft neurovascular intact EHL tibialis anterior gastrocsoleus intact sensation light touch palpable pulses Assessment & Plan Assessment/Plan (1) S/P total knee arthroplasty: PLAN: Plan Postop day #1 left total knee arthroplasty. We will increase oxycodone up to 15 mg every 4 hours PT OT weightbearing as tolerated encourage knee range of motion DVT prophylaxis Eliquis 2.5 mg twice daily SCDs JULEE kaufman Discharge planning home today after a.m. therapy and pain controlled
--- NOTE | 2022-11-08 08:01 | DCINST_ITS ---
Discharge Instructions Diet Discharge Diet: No restrictions (A high sugar diet increases risk of infection postoperatively; minimize sweets and carbs) Dressing / Incision Call your doctor if you observe: Shortness of breath and Chest pain Additional Dressing/Incision Instructions:: Ice and elevate lower extremities 2 weeks while not ambulating. Ambulation is encouraged. Weight bearing as tolerated. Use assistive devise for stability. Encourage FULL knee extension and flexion 1 time EVERY time you get up and down and MULTIPLE times per day. No showering 72 hours after surgery. Begin showering postop day #3. Remove the dressing prior to shower and gently wash with warm water and antibacterial soap then pat dry and place abdominal pad (or plain gauze) and JULEE hose over top. This is to be done daily. Do not submerge for 3 weeks. If not showering daily after the initial 72 hours then you must clean incision and change dressing daily. Do not allow animals near the incision area. Keep clean. Follow anti- coagulation recommendations as prescribed. Do not take any NSAIDs while on blood thinner. Do not take any additional narcotic pain medication other than what was prescribed on your surgery day without discussing with physician. N arcotic medication can be addictive. Do not drink alcohol while taking narcotics. Supplement narcotic prescription with acetaminophen 1000 mg 4 times a day. Start physical therapy. If you are not currently scheduled for physical therapy or you are unsure of appointment time please call office [facility] to arrange. Call Dr. Dunlap with any concerns. Follow Up Care Please Follow Up With: Reynold Dunlap DO When: 2 weeks Test Results: Test results from this visit will be discussed in further detail at your follow- up appointment, if applicable. Discharge Plan Admission Admit Date/Time: 11/07/22 10:47 Primary Reason for Your Visit: Left total knee arthroplasty Attending Provider: Reynold Dunlap Primary Care Provider: Rena Alexander Discharge Orders/Prescriptions Prescriptions: New acetaminophen [acetaminophen] 500 mg tablet 1,000 mg PO Q6H PRN Qty: 100 0RF Eliquis 2.5 mg tablet 2.5 mg PO BID Qty: 30 0RF oxycodone 5 mg tablet 5 - 15 mg PO Q4H PRN (Reason: pain) 5 Days Qty: 60 0RF Rx Instructions: Can be addictive and constipating minimize use only as needed wean down soon as possible. Supplement with Tylenol. Continued bupropion HCl [Wellbutrin SR] 200 mg tablet sustained-release 12 hr 200 mg PO BID buspirone 30 mg tablet 30 mg PO BID enalapril maleate 5 mg tablet 5 mg PO DAILY Byetta 5 mcg/dose (250 mcg/mL) 1.2 mL pen injector 5 mcg subcut BID vilazodone 40 mg tablet 40 mg PO DAILY Rx Instructions: must administer with a meal/food alprazolam 0.25 mg Tablet 0.25 mg PO BID PRN (Reason: Anxiety) rosuvastatin [Crestor] 5 mg Tablet 5 mg PO QHS Referrals / Follow Up: Rena Alexander MD [Primary Care Provider] -
[2022-11-08 09:14] VITALS: BP 141/71; PULSE 89; RESP 18; TEMP 36.8; O2SAT 98
[2022-11-08] MEDS: VILAZODONE HYDROCHLORIDE 10 MG TABLET 40 MG PO (09:17)
[2022-11-08] MEDS: Senna/Docusate Sodium 1 Tablet 2 TABLET PO ×2 (09:17→21:45)
[2022-11-08] MEDS: busPIRone 15 MG TABLET 30 MG PO ×2 (09:18→21:44)
[2022-11-08] MEDS: Atorvastatin Calcium 10 MG Tablet PO (09:18)
[2022-11-08] MEDS: Lisinopril 5 MG Tablet PO (09:18)
[2022-11-08] MEDS: buPROPion (SR) 100 MG TABLET.SA 200 MG PO ×2 (09:18→21:44)
--- NOTE | 2022-11-08 10:39 | CASEMGMT ---
Addendum entered by Gerhard Dove 11/08/22 11:48: Pt discharging home on Eliquis, which has been e-scribed to [facility] pharm. Call to the pharmacy who states pt's insurance covered for the Eliquis @ 100% and savings card was not needed. Addendum entered by Gerhard Dove 11/08/22 10:54: Per Bridget @ [facility], they are able to accept pt w/SOC 11/10. This was added in discharge plan. Call placed to [facility] and spoke w/Gwen. She was made aware to cx pt's OP appt for tomorrow d/t will have HHC now. She states she will cancel [facility] van transport as well. Pt made aware of above. Dr Dunlap made pt reports feeling foggy and aware therapy recommends HHC and for pt to stay one more night and that pt is agreeable to this plan. Order received to cancel discharge. residential fee appraiserMaryann, and pt made aware. Original Note: RN?CM?LABORATORY IMMUNOLOGIST?CM?to room to meet with patient for initial transition planning/care coordination?assessment.?RN?CM?introduced self and role at [facility].? Pt voices understanding and consents to?assessment?at this time.? Pt sitting up in chair in room in no distress at this time.? Pt is A/O at this time and answers all questions appropriately.? Per staff, pt has been feeling foggy since surgery and pt verifies this. Therapy worked w/pt this AM and recommending HHC vs OP therapy and for pt to stay one more night for her safety. RN CM discussed discharge plan w/pt. Pt agreeable to this, stating she thinks she'll be thinking more clearly by tomorrow and is interested in having HHC for a couple of weeks until she can get in/out of a vehicle easier. Care providers, pharmacy, and demographics verified/updated at this time. PCP: Dr Alexander Specialists:Dr Dunlap--ortho Preferred Pharmacy: [facility] Insurance: [employer], [employer] Prescription Benefit:?Yes Living Will/HPOA:?Pt has both LW and HCPOA. Both are on file @ [facility]. Step-Chris lynn is HCPOA and Kike DOUGLAS is 1st alternative. LNOK: POA/Chris, step-son. 1st alt POA/Kike-DIL. Nicole-DIL. Living Arrangements: Lives w/ in a one-story home w/one step to enter. Pt indep w/ADL's and IADL's prior to surgery and she takes care of her who has had a CVA in the past. Pt's DIL, Nicole, is staying w/pt's today until 8 PM and pt has made arrangements for a HHC aide to stay the night w/her husbband until his daytime aide arrives in the AM. Transportation:?Pt states drives self and states no transportation concerns at this time.?Pt had made arrangements to utilize [facility] transp for OP therapy @ [facility] and plans to resume this once [facility] discharges her and she begins OP therapy in a couple of weeks. DME: ?States has the following DME:?walker, shower chair, BSC, functioning glucometer w/supplies. ?Pt states no need for further DME at this time.? HHC/SNF: No hx of either. Pt interested in HHC for a couple of weeks before going to OP therapy @ [facility]. Pt states her preference of HHC is either [facility] or [facility]. She declines wanting list of other HHC options. Call to Bridget @ [facility] and referral made. Order placed for HHC: PT eval and treat. Awaiting response re: acceptance. Pt wishes to return home w/HHC and states has no further concerns with going home at time of discharge.?CM?to follow for any further discharge planning/needs.? Pt voices no further concerns/needs at this time.? Advised pt to ask for?CM?if any further questions/concerns/needs arise.? Voices understanding. PLAN:??Home w/HHC. Jim BSN?RN?CM
--- NOTE | 2022-11-08 10:52 | PHA.DC.MC ---
Pharmacy Service has performed discharge medication reconciliation and counseling for this patient. Patient requested meds to beds, this [facility] called retail, spoke to Lori and requested delivery. 1. ACETAMINOPHEN 1000MG PO Q6H PRN PAIN 2. APIXABAN 2.5MG PO BID X 15 DAYS 3. OXYCODONE 5-15MG PO Q4H PRN PAIN X 5 DAYS The patient's discharge medication list was reviewed for discrepancies and discrepancies were resolved. Home Medications bupropion HCl 200 mg tablet,12 hr sustained-release (Wellbutrin SR) 200 mg PO BID 05/24/21 buspirone 30 mg tablet 30 mg PO BID 05/24/21 enalapril maleate 5 mg tablet 5 mg PO DAILY 05/24/21 exenatide 5 mcg/dose (250 mcg/mL)1.2 mL subcutaneous pen injector (Byetta) 5 mcg subcut BID 05/24/21 vilazodone 40 mg tablet 40 mg PO DAILY 05/24/21 alprazolam 0.25 mg tablet 0.25 mg PO BID PRN Anxiety 09/26/22 rosuvastatin 5 mg tablet (Crestor) 5 mg PO QHS 09/26/22 acetaminophen 500 mg tablet 1,000 mg PO Q6H PRN #100 tabs 11/08/22 apixaban 2.5 mg tablet (Eliquis) 2.5 mg PO BID #30 tabs 11/08/22 oxycodone 5 mg tablet 5 - 15 mg PO Q4H PRN pain 5 days #60 tabs 11/08/22 The patient was counseled on the following discharge medications and changes in medications for homegoing were reviewed. The Reason for Use, instructions for use, and potential side effects were reviewed for all new medications. The patient's questions regarding all of their medications were answered. The patient was able to verbally demonstrate an understanding of their discharge medications.
[2022-11-08 11:26] LABS: Bedside Glucose 164 mg/dL (74-106)
[2022-11-08 14:11] VITALS: BP 126/70; PULSE 101; RESP 18; TEMP 36.9; O2SAT 100
[2022-11-08] MEDS: ALPRAZolam 0.25 MG Tablet PO (15:37)
--- NOTE | 2022-11-08 16:53 | CASEMGMT ---
SVETA IRWIN NOTE: KENDALL form explained re: Observation status for treatment of left total knee replacment.? Explained hospitalization will be paid per?her insurance policy for Outpatient billing?and condition will continue to be evaluated for Inpt necessity. Also let pt know that [facility] sends paper in the billing packet with their phone number if questions arise. Pt verbalizes understanding and does not have further questions. ?Form signed, copy made and placed in chart, and original given to pt. Jim SIMONS RN CM
[2022-11-08 16:55] LABS: Bedside Glucose 181 mg/dL (74-106)
[2022-11-08 21:59] VITALS: BP 107/51; PULSE 95; RESP 16; TEMP 37.2; O2SAT 100
[2022-11-08 22:15] LABS: Bedside Glucose 158 mg/dL (74-106)
[2022-11-09 04:26] LABS: Hemoglobin 9.6 g/dL (12.0-15.0); Mean Corpuscular Hgb 29.4 pg (27.0-32.0); Mean Corpuscular Volume 95.1 fL (81-99); Mean Platelet Vol. 9.6 fl (6.2-12.0); Platelet Count 214 K/mm3 (150-450); RBC Distribution Width CV 13.6 % (11.6-14.6); RBC Distribution Width SD 47.8 fl (35.1-43.9); Red Blood Count 3.26 M/mm3 (4.2-5.4)
[2022-11-09] MEDS: oxyCODONE 5 MG Tablet PO ×4 (05:56→22:31)
[2022-11-09] MEDS: ALPRAZolam 0.25 MG Tablet PO ×2 (05:56→22:31)
[2022-11-09] MEDS: Acetaminophen 500 MG Tablet 1000 MG PO ×3 (06:02→22:32)
[2022-11-09 06:17] VITALS: BP 122/48; PULSE 95; RESP 16; TEMP 36.1; O2SAT 96
[2022-11-09] MEDS: Insulin Lispro 100 UNIT/ML INSULN.PEN SC ×2 (06:25→15:46)
[2022-11-09 06:45] LABS: Bedside Glucose 157 mg/dL (74-106)
--- NOTE | 2022-11-09 08:25 | PN.ORTHO_ITS ---
Subjective Subjective Seen and examined she still having complaints of pain even with increased oxycodone dose. Denies other complaints patient was in the bathroom when I first arrived and I watched her walk with therapist back to her chair she seems very unsteady. Has much difficulty getting into the chair Objective Data Objective Data Vital Signs: Vital Signs Temp Pulse Resp BP Pulse Ox O2 Del Method O2 Flow Rate 97 F L 95 16 122/48 H 96 Room Air 4 11/09/22 06:17 11/09/22 06:17 11/09/22 06:17 11/09/22 06:17 11/09/22 06:17 11/09/22 06:17 11/07/22 13:00 Oxygen Flow Rate (L/min) 4 Oxygen Delivery Method Room Air Weight: 172 lb 9.951 oz Body Mass Index (BMI) 30.5 Intake & Output: Intake and Output for Last 24 Hours 11/07/22 11/08/22 11/09/22 23:59 23:59 23:59 Intake Total 4055.34 / 4555.34 1856.25 / 1856.25 Balance 4055.34 / 4555.34 1856.25 / 1856.25 Lab / Micro Data Result Diagrams: 11/09/22 04:08 11/08/22 04:55 Labs: Laboratory Results - last 24 hr 11/08/22 11:03: POC Glucose 164 H 11/08/22 16:36: POC Glucose 181 H 11/08/22 21:46: POC Glucose 158 H 11/09/22 04:08: WBC 11.0, RBC 3.26 L, Hgb 9.6 L, Hct 31.0 L, MCV 95.1, MCH 29.4, MCHC 31.0 L, RDW Std Deviation 47.8 H, RDW Coeff of Raghavendra 13.6, Plt Count 214, MPV 9.6 11/09/22 06:24: POC Glucose 157 H Physical Exam Const alert, oriented x3 and no apparent distress General Appearance: cooperative Extremity Extremity Narrative: Dressing clean dry intact compartments soft neurovascular intact Assessment & Plan Assessment/Plan (1) S/P total knee arthroplasty: PLAN: Plan Postop day #2 left total knee arthroplasty PT OT weightbearing as tolerated DVT prophylaxis SCDs Opal kaufman 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
[2022-11-09] MEDS: VILAZODONE HYDROCHLORIDE 10 MG TABLET 40 MG PO (08:45)
[2022-11-09] MEDS: Lisinopril 5 MG Tablet PO (08:46)
[2022-11-09] MEDS: busPIRone 15 MG TABLET 30 MG PO ×2 (08:46→22:32)
[2022-11-09] MEDS: buPROPion (SR) 100 MG TABLET.SA 200 MG PO ×2 (08:46→22:33)
[2022-11-09] MEDS: APIXABAN 2.5 MG TABLET (WCH) PO ×2 (08:46→22:32)
[2022-11-09] MEDS: Senna/Docusate Sodium 1 Tablet 2 TABLET PO ×2 (08:46→22:33)
[2022-11-09] MEDS: Atorvastatin Calcium 10 MG Tablet PO (08:46)
[2022-11-09 09:09] VITALS: BP 120/55; PULSE 130; RESP 16; TEMP 36.8; O2SAT 97
[2022-11-09 11:09] VITALS: BP 99/52; PULSE 106; RESP 16; TEMP 37.1; O2SAT 98
[2022-11-09 11:26] LABS: Bedside Glucose 146 mg/dL (74-106)
--- NOTE | 2022-11-09 12:04 | CASEMGMT ---
Social Work SW received message from physician that pt would benefit from short term rehab prior to returning home. KELLY met with pt, pt's spouse Christiano, pt's daughter in law Ivelisse and husbands caregiver Belen in room and introduced self and role of SW. Pt is aware that physician is recommending SNF. Pt is concerned as she is 's primary caregiver and she states needs to come to nursing facility with her for a respite stay. SW explained process of getting someone admitted to SNF from community and that SW can guide, but family will have to coordinate this. A list of SNF providers including quality and resource use data and consistent with the patient?s preferred geographic region, medical needs, and insurance network were provided from the [employer] Guide. Pt's preferred provider is [facility]. VM left with [facility] inquiring about bed availability. Pt and caregiver inquiring if pt can return home with home health and caregiver assisting. Belen will be in the home to assist from 9am-1pm and 6pm-bedtime 7 days a week. She lives 2 minutes away and would be available if pt needed something. KELLY spoke with therapy who states they recommend SNF placement due to functional limitations from surgery and pt would benefit from rehabilitation over home health. Phone call received form pt step son Onel Curiel [phone] who is concerned about pt's and finding placement for him. With permission from pt return call placed to Onel. Onel states pt cannot stay home if pt goes to SNF. Onel states he spoke with [facility] this morning and they have no beds available. Onel then spoke with [facility] and they do have beds available for pt spouse and they are reaching out to his physician for orders. KELLY met with pt and family again. Explained concerns and recommendations of therapists and conversation with Onel. Pt agreeable to go to SNF, but will not go without . Pt next choice of facilities is [facility]. Phone call to [facility] and MAURO left explaining situation. Referral sent via [employer]. SW will await return call from [facility]. JAY Stubbs
[2022-11-09 15:06] VITALS: BP 102/37; PULSE 105; RESP 16; TEMP 37.2; O2SAT 97
--- NOTE | 2022-11-09 15:20 | CASEMGMT ---
Social Work KELLY spoke with [facility] pt and will start precert at this time. [facility] is also able to accept pt Christiano for respite stay. KELLY provided Taylor with pt's son Onel contact information. Phone call to Onel and explained that pt and Christiano have been accepted at [facility]. This KELLY is not able to complete any further ECF planning for Christiano and Onel will need to call Taylor at [facility] to make arrangements. Taylor's number provided. KELLY spoke with pt's dgt in [facility] and updated on discharge plan. KELLY met with pt and explained above. Plan: [facility], pending precert JAY Stubbs
[2022-11-09 16:05] LABS: Bedside Glucose 175 mg/dL (74-106)
[2022-11-09 22:22] VITALS: BP 116/95; PULSE 98; RESP 18; TEMP 36.9; O2SAT 97
[2022-11-09 23:06] LABS: Bedside Glucose 137 mg/dL (74-106)
[2022-11-10] MEDS: oxyCODONE 5 MG Tablet PO ×3 (05:04→15:40)
[2022-11-10] MEDS: Acetaminophen 500 MG Tablet 1000 MG PO ×2 (05:04→15:41)
[2022-11-10 05:19] VITALS: BP 111/73; PULSE 98; RESP 18; TEMP 36.8; O2SAT 96
[2022-11-10 06:18] LABS: Hematocrit 28.3 % (37-47); Hemoglobin 8.8 g/dL (12.0-15.0); Mean Corp Hgb Conc 31.1 g/dL (32-36); Mean Corpuscular Hgb 29.8 pg (27.0-32.0); Mean Corpuscular Volume 95.9 fL (81-99); Mean Platelet Vol. 9.8 fl (6.2-12.0); Platelet Count 203 K/mm3 (150-450); RBC Distribution Width CV 13.5 % (11.6-14.6); RBC Distribution Width SD 47.8 fl (35.1-43.9); Red Blood Count 2.95 M/mm3 (4.2-5.4); White Blood Count 8.2 K/mm3 (4.4-11.0)
[2022-11-10 06:20] LABS: Bedside Glucose 102 mg/dL (74-106)
[2022-11-10 09:28] VITALS: BP 128/51; PULSE 97; RESP 18; TEMP 36.9; O2SAT 97
[2022-11-10] MEDS: buPROPion (SR) 100 MG TABLET.SA 200 MG PO (09:38)
[2022-11-10] MEDS: VILAZODONE HYDROCHLORIDE 10 MG TABLET 40 MG PO (09:38)
[2022-11-10] MEDS: Senna/Docusate Sodium 1 Tablet 2 TABLET PO (09:38)
[2022-11-10] MEDS: APIXABAN 2.5 MG TABLET (WCH) PO (09:39)
[2022-11-10] MEDS: Lisinopril 5 MG Tablet PO (09:39)
[2022-11-10] MEDS: Atorvastatin Calcium 10 MG Tablet PO (09:39)
[2022-11-10] MEDS: busPIRone 15 MG TABLET 30 MG PO (09:39)
--- NOTE | 2022-11-10 11:15 | CASEMGMT ---
Social Work RN reporting pt is stating she will be returning home today and does not need SNF. KELLY spoke with DIETETIC TECHNICIAN who states pt was improved today over yesterday with therapy, but continues to recommend short term stay at SNF for rehab. Phone calls placed to pt dgt in law [place] and son Onel. Both parties confirm that the plan has not changed and pt and spouse will go to [facility]. Onel reports pt spouse is agreeable to going to [place] for respite stay. nOel plans to call pt and discuss discharge plan. KELLY met with pt who states that she now is agreeable to continue with plan to go to [facility] at discharge for short term rehab. Precert has been obtained and pt can discharge today. KELLY pt and family aware. Pt will update physician when he arrives. Plan: [facility], when medically ready JAY Stubbs
[2022-11-10] MEDS: Insulin Lispro 100 UNIT/ML INSULN.PEN SC (12:31)
[2022-11-10 12:50] LABS: Bedside Glucose 168 mg/dL (74-106)
--- NOTE | 2022-11-10 15:30 | TREXTCAR_ITS ---
Diet Diet Order/Speech Therapy: 11/07/22 16:43 ADA [Diet: Cardiac: Calorie-Controlled] Food consistency:: Regular Liquid Consistency:: Regular/Thin Is pt able to select menu?: Yes How many daily calories?: 1800 calorie Wound(s) LEFT KNEE: Wound Type: Surgical Incision L jones: Wound Type: Surgical Incision Therapies Weight Bearing: Weight bearing as tolerated Problem/Diagnosis (1) S/P total knee arthroplasty: Status: Acute Code(s): Z96.659 - Presence of unspecified artificial knee joint Plan Postop day #2 left total knee arthroplasty PT OT weightbearing as tolerated DVT prophylaxis SCDs Opal kaufman 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 Allergies/Procedures Done in Hospital Allergies Penicillins Allergy (Severe, Verified 10/20/22 09:29) throat swells azithromycin Allergy (Verified 10/20/22 09:29) Diarrhea Sulfa (Sulfonamide Antibiotics) Allergy (Verified 10/20/22 09:29) blisters Type of Care/Length of Stay Estimated LOS: Convalescent Care Less Than 30 days Type of Care Needed: Skilled Rehab Potential: Good Prognosis: Good Additional Orders/Day of Discharge Day of Discharge: 11/10/22 Follow Up Care Please Follow Up With: Reynold Dunlap DO Discharge Plan Admission Admit Date/Time: 11/07/22 10:47 Primary Reason for Your Visit: Left total knee arthroplasty Attending Provider: Reynold Dunlap Primary Care Provider: Rena Alexander Instructions Additional Instructions / Restrictions: dressing to be removed and changed daily with dry dressing should be cleaned with warm water and antibacterial soap. , encourage full knee range of motion. Ice and elevate when not ambulating. Discharge Orders/Prescriptions Prescriptions: New acetaminophen [acetaminophen] 500 mg tablet 1,000 mg PO Q6H PRN Qty: 100 0RF Eliquis 2.5 mg tablet 2.5 mg PO BID Qty: 30 0RF oxycodone 5 mg tablet 5 - 15 mg PO Q4H PRN (Reason: pain) 5 Days Qty: 60 0RF Rx Instructions: Can be addictive and constipating minimize use only as needed wean down soon as possible. Supplement with Tylenol. oxycodone 5 mg Tablet 5 - 15 mg PO Q4H PRN PRN (Reason: Pain Score 4-10) 7 Days Qty: 60 0RF Continued bupropion HCl [Wellbutrin SR] 200 mg tablet sustained-release 12 hr 200 mg PO BID buspirone 30 mg tablet 30 mg PO BID enalapril maleate 5 mg tablet 5 mg PO DAILY Byetta 5 mcg/dose (250 mcg/mL) 1.2 mL pen injector 5 mcg subcut BID vilazodone 40 mg tablet 40 mg PO DAILY Rx Instructions: must administer with a meal/food alprazolam 0.25 mg Tablet 0.25 mg PO BID PRN (Reason: Anxiety) rosuvastatin [Crestor] 5 mg Tablet 5 mg PO QHS Referrals / Follow Up: Rena Alexander MD [Primary Care Provider] - Disposition Disposition (needs filled in before D/C Order can be placed): Care Home Facility
--- NOTE | 2022-11-10 16:35 | CASEMGMT ---
Social Work Precert has been obtained. Physician updated and pt is ready for discharge today. PASRR completed in [facility] and sent along with discharge orders and covid results to [facility] via [facility]. Transportation arranged with [facility] ambulance for 8:00 pickup via wheelchair van. SW met with pt and updated on discharge plan. Pt is agreeable. Phone call to pt dil Nicole and updated as well. WVM and bedside nurse notified of discharge time. Disposition: [facility], skilled level of care. JAY Stubbs
[2022-11-10 17:31] LABS: Bedside Glucose 140 mg/dL (74-106)
[2022-11-10 19:32] VITALS: BP 131/63; PULSE 100; RESP 18; TEMP 37; O2SAT 96
--- NOTE | 2022-11-10 19:47 | NURSING ---
Report called to [facility].
== END 2022-11-10 21:22 | disposition skilled nursing facility (03) ==
LOC: SDC 14:25 → MS3 14:25
PROVIDERS: Admitting Provider Orthopaedic Surgery; PCP Internal Medicine; Referring Provider Orthopaedic Surgery; Visit Provider Orthopaedic Surgery
PROC: 0SRD0JZ Replacement of Left Knee Joint with Synthetic Substitute, Open Approach (ICD-10-PCS; CPT 27447; principal; 2022-11-07 07:45)
DX: M17.12 Unilateral primary osteoarthritis, left knee (principal); E11.9 Type 2 diabetes mellitus without complications; Z87.891 Personal history of nicotine dependence; Z79.899 Other long term (current) drug therapy; Z79.82 Long term (current) use of aspirin; F41.9 Anxiety disorder, unspecified; F32.A Depression, unspecified; Z86.2 Personal history of diseases of the blood and blood-forming organs and certain disorders involving the immune mechanism; E78.00 Pure hypercholesterolemia, unspecified; E66.9 Obesity, unspecified; Z68.30 Body mass index [BMI] 30.0-30.9, adult; I10 Essential (primary) hypertension; R06.02 Shortness of breath
CPT/HCPCS: 27447; S2900; 01402; 64447; 36415; 73560; 80048; 82962; 85027; 87426; 88305; 88311; 94668; 96361; 96365; 96375; 97110; 97116; 97162; 97166; 97530; 97535; 99221; 99252; C1776; J7050; J7120; A4216; G0378; G0463; J2405; J3475; J3490

== ENCOUNTER 2023-03-06 14:00 | Outpatient (RCR) | payer MEDICARE, MEDICAID, SELFPAY ==
--- NOTE | 2022-11-17 10:14 | DS.PCM_ITS ---
Providers Primary Care Physician: Dr. Rena Alexander MD Reason For Visit: LT TKA. RX HERE Medications at Discharge Home Medications bupropion HCl 200 mg tablet,12 hr sustained-release (Wellbutrin SR) 200 mg PO BID 05/24/21 buspirone 30 mg tablet 30 mg PO BID 05/24/21 enalapril maleate 5 mg tablet 5 mg PO DAILY 05/24/21 exenatide 5 mcg/dose (250 mcg/mL)1.2 mL subcutaneous pen injector (Byetta) 5 mcg subcut BID 05/24/21 vilazodone 40 mg tablet 40 mg PO DAILY 05/24/21 alprazolam 0.25 mg tablet 0.25 mg PO BID PRN Anxiety 09/26/22 rosuvastatin 5 mg tablet (Crestor) 5 mg PO QHS 09/26/22 acetaminophen 500 mg tablet 1,000 mg PO Q6H PRN #100 tabs 11/08/22 apixaban 2.5 mg tablet (Eliquis) 2.5 mg PO BID #30 tabs 11/08/22 oxycodone 5 mg tablet 5 - 15 mg PO Q4H PRN pain 5 days #60 tabs 11/08/22 oxycodone 5 mg tablet 5 - 15 mg PO Q4H PRN PRN Pain Score 4-10 7 days #60 tabs 11/10/22 oxycodone 5 mg tablet 5 mg PO Q4H PRN pain 4 days #12 tabs 11/16/22 Hospital Course Operations total knee replacement Summary of Care Provided Hospital Course: Michelle is a 63-year-old female who has long history of degenerative joint disease to the left knee who has failed conservative treatment and wished to undergo elective total knee arthroplasty. Patient underwent the aformentioned procedure on the admission date without any intraoperative complications. Patient did receive pre-and postoperative antibiotics which were discontinued within 23 hours postoperatively. Patient was initially planned for discharge home after surgery however her stability physically and some confusion postop necessitated observation then following surgery she continued to show concerns for safety about returning home with her stability standing and transitioning to a chair. 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 Pain initially not controlled and required increased to 15 mg p.o. every 4 hours will be discharged with oxycodone and will continue Tylenol as well. Patient had minimal intraoperative blood loss and 2gm tranexamic acid was administered there was no need for postoperative blood transfusion Patients vital signs remained stable. Patient was started on both mechanical and chemical DVT per prophylaxis postoperatively in the form of SCDs JULEE hose and Eliquis 2.5 mg twice daily for which she will continue for 2 additional weeks post hospital discharge. thigh high julee hose placed over top of the meplix silver dressing. This should be removed 72 hrs post operatively and showering begun daily at that time with warm water and antibacterial soap. not to submerge for 3 weeks. To change dressing daily after first dressing change. Patient will follow-up in the office in 2 weeks. No intrahospital complications. D/C Instructions Additional Dressing/Incision Instructions: Ice and elevate lower extremities 2 weeks while not ambulating. Ambulation is encouraged. Weight bearing as tolerated. Use assistive devise for stability. Encourage FULL knee extension and flexion 1 time EVERY time you get up and down and MULTIPLE times per day. No showering 72 hours after surgery. Begin showering postop day #3. Remove the dressing prior to shower and gently wash with warm water and antibacterial soap then pat dry and place abdominal pad (or plain gauze) and JULEE hose over top. This is to be done daily. Do not submerge for 3 weeks. If not showering daily after the initial 72 hours then you must clean incision and change dressing daily. Do not allow animals near the incision area. Keep clean. Follow anti- coagulation recommendations as prescribed. Do not take any NSAIDs while on blood thinner. Do not take any additional narcotic pain medication other than what was prescribed on your surgery day without discussing with physician. Narcotic medication can be addictive. Do not drink alcohol while taking narcotics. Supplement narcotic prescription with acetaminophen 1000 mg 4 times a day. Start physical therapy. If you are not currently scheduled for physical therapy or you are unsure of appointment time please call office [facility] to arrange. Call Dr. Dunlap with any concerns. Please Follow Up With: Reynold Dunlap DO When: 2 weeks Meaningful Use Info Meaningful Use Diagnoses (Choose all that apply): None applicable Discharge Plan Admission Attending Provider: Reynold Dunlap Primary Care Provider: Rena Alexander Discharge Orders/Prescriptions Prescriptions: No Action bupropion HCl [Wellbutrin SR] 200 mg tablet sustained-release 12 hr 200 mg PO BID buspirone 30 mg tablet 30 mg PO BID enalapril maleate 5 mg tablet 5 mg PO DAILY Byetta 5 mcg/dose (250 mcg/mL) 1.2 mL pen injector 5 mcg subcut BID vilazodone 40 mg tablet 40 mg PO DAILY Rx Instructions: must administer with a meal/food alprazolam 0.25 mg Tablet 0.25 mg PO BID PRN (Reason: Anxiety) rosuvastatin [Crestor] 5 mg Tablet 5 mg PO QHS acetaminophen [acetaminophen] 500 mg tablet 1,000 mg PO Q6H PRN Qty: 100 0RF Eliquis 2.5 mg tablet 2.5 mg PO BID Qty: 30 0RF oxycodone 5 mg tablet 5 - 15 mg PO Q4H PRN (Reason: pain) 5 Days Qty: 60 0RF Rx Instructions: Can be addictive and constipating minimize use only as needed wean down soon as possible. Supplement with Tylenol. oxycodone 5 mg Tablet 5 - 15 mg PO Q4H PRN PRN (Reason: Pain Score 4-10) 7 Days Qty: 60 0RF oxycodone 5 mg tablet 5 mg PO Q4H PRN (Reason: pain) 4 Days Qty: 12 0RF Referrals / Follow Up: Rena Alxeander MD [Primary Care Provider] -
--- NOTE | 2022-11-30 16:13 | HP.PTEVAL_ITS ---
Patient's Visit Information LISS SHARPE is a 62 year old F referred to Physical Therapy by Dr. Reynold Dunlap DO with a diagnosis of L TKA. Date of Evaluation: 11/30/22 Physical Therapist: Kelby Sheldon DPT - Visit Plan Frequency: 3x /Week Duration: 6 Weeks Plan: Start with working on end range extension, progressing flexion to 120deg. Add in quad strengthening, progression of gait mechanics. Progress functional mobility, stairs. Add in joint mobilizations. - Subjective Pt. is here today for her initial evaluation with diagnosis of L TKA. DOS: 11/07/22. Pt. reports overall doing very well. pt. is walking with FWW, but at home has been walking without it at times. Pt. denies calf pain and no N/T in either LE. Pt. has been doing her exercises at home. She does look at her and has to do some assistance with transfers and bed mobility, but currently a nurse has been doing so. Pt. is hopeful to get back to all recreational activities without limitations. - Pain L knee Pain Intensity (Out of 10): 3 Pain Intensity Range: 2, 7 - Objective POSTURE: Pt. has increased R lateral wt. shift. Lacks TKE on LLE. PALPATION: Pt. has some edema, non pitting in L knee, but minimal distal edema. Negative homans sign. Well healing incision, no signs of infection. NEURO: Pt. has normal sensation to light and sharp touch. Pt. is able to rise on heels and toes without issues. ROM: L knee: 0-6-96deg AROM, PROM 0-4-105deg. Pt. has tight B HS, needs to work on TKE. MMT: LLE: ankle 5/5 throughout; L Knee: ext 4-/5, flexion 4/5; hip: flexion 4/5, abd 4/5, ext 4/5. GAIT: Pt. is able to ambulate with out AD, but does have marked lack of TKE of LLE during stance phase. Normal knee flexion during swing phase. Decreased tempo noted. - Balance/Special Test Scores Lower Extremity Functional Score: 28 TUG Test Time Seconds: 21.5 - Goals Goal 1:: LTG: Pt. to be I with HEP. Goal Time Frame: 4-6 Weeks Goal 2:: STG: Pt. to have increased L knee extension to 0deg. Goal Time Frame: 2 Weeks Goal 3:: LTG: Pt. to have increased L knee ROM to 0-0-120deg without increase in symptoms. Goal Time Frame: 4-6 Weeks Goal 4:: LTG: Pt. to ambulate with normal gait pattern without AD without increase in symptoms. Goal Time Frame: 4-6 Weeks Goal 5:: LTG: Pt. to have increased LLE strength to 5/5 throughout. Goal Time Frame: 4-6 Weeks Goal 6:: LTG: Pt. to negotiate 1 flight of stairs with 1 HR without LOB with reciprocal pattern. Goal Time Frame: 4-6 Weeks - Rehabilitation Potential Physical Therapy Diagnosis: Pt. has signs and symptoms consistent with a L TKA, DOS: 11/07/22. Pt. has some marked hypomobility that needs to be addressed initially, progressing back to walking and functional mobility as tolerated Rehabilitation Potential: Excellent - Anticipated Interventions Patient/Client Instruction: Educate patient on: Condition, Plan of Care, Risk Factors, Benefits of Fitness Program For the Purpose of:: To improve self management, To prevent re-injury, To improve ability to perform tasks related to life management, To improve tolerance to ADL's Therapeutic Exercise to Include: Strength training, Power training, Balance training, Postural training, Flexibilty training, Gait and locomotor training, Neuromotor development, Passive ROM, Active ROM For the Purpose of:: To decrease pain, To increase ROM, To improve nutrient delivery to tissue, To increase oxygenation perfusion, To improve muscle performance and motor function, To improve ability to perform ADL's Manual Therapy Techniques to Include: Mobilization, Passive ROM, Soft tissue mobilization For the Purpose of:: To decrease pain, To decrease swelling/inflammation, To increase ROM, To improve nutrient delivery to tissue Cryotherapy (ice pack, ice massage): Yes For the Purpose of:: To decrease pain, To decrease swelling/inflammation, To increase ROM Thank you for the opportunity to evaluate your patient. For Medicare and Medicare HMO plans, please review the plan of care and approve it. It will need to be FAXED BACK to us at [phone] for Medicare purposes. For Medicare only, by signing this I certify the plan of care. Please let me know if there are questions or concerns regarding this plan of care. Physician Signature: Date:
--- NOTE | 2022-12-27 13:46 | HP.PTREVAL ---
Dr. Reynold Dunlap, DO, It has been my pleasure to treat LISS SHARPE over the last 9 visits for L TKA. Please see the progress note below for an update on the physical therapy plan of care! Subjective: Pt. reports no new issues. Pt. reports being still the other day, but today is much better. Objective/Function: ROM: PROM: 0-0-120deg pain at end ranges. AROM: 0-0-117deg. MMT: 5/5 strength throughout BLEs. gait: pt. is able to ambulate well without issues. STAIRS: Pt. is able to negotiate well, slight antalgic during L stance phase. Pt. is progressing. She did have questions about progressing to gym exercises at local gym. Plan Plan: Pt. to follow up with physician later this date. Cont. to increase ROM until she can comfortably get to her 0-0-120deg. Pending physician approval progress to strengthening and add in end range stretching as tolerated. Balance/Gait/Functional tests - Balance/Special Test Scores Lower Extremity Functional Score: 28 TUG Test Time Seconds: 21.5 Tug Test: 20-30sec.=variable mobility Goals Goal 1:: LTG: Pt. to be I with HEP. Goal Time Frame: 4-6 Weeks Goal 2:: STG: Pt. to have increased L knee extension to 0deg. Goal Time Frame: 2 Weeks Goal 3:: LTG: Pt. to have increased L knee ROM to 0-0-120deg without increase in symptoms. Goal Time Frame: 4-6 Weeks Goal 4:: LTG: Pt. to ambulate with normal gait pattern without AD without increase in symptoms. Goal Time Frame: 4-6 Weeks Goal 5:: LTG: Pt. to have increased LLE strength to 5/5 throughout. Goal Time Frame: 4-6 Weeks Goal 6:: LTG: Pt. to negotiate 1 flight of stairs with 1 HR without LOB with reciprocal pattern. Goal Time Frame: 4-6 Weeks Anticipated Interventions Patient/Client Instruction: Educate patient on: Condition, Plan of Care, Risk Factors, Benefits of Fitness Program For the Purpose of:: To improve self management, To prevent re-injury, To improve ability to perform tasks related to life management, To improve tolerance to ADL's Therapeutic Exercise to Include: Strength training, Power training, Balance training, Postural training, Flexibilty training, Gait and locomotor training, Neuromotor development, Passive ROM, Active ROM For the Purpose of:: To decrease pain, To increase ROM, To improve nutrient delivery to tissue, To increase oxygenation perfusion, To improve muscle performance and motor function, To improve ability to perform ADL's Manual Therapy Techniques to Include: Mobilization, Passive ROM, Soft tissue mobilization For the Purpose of:: To decrease pain, To decrease swelling/inflammation, To increase ROM, To improve nutrient delivery to tissue Cryotherapy (ice pack, ice massage): Yes For the Purpose of:: To decrease pain, To decrease swelling/inflammation, To increase ROM Please do not hesitate to contact me at [phone] by phone or if you have questions or concerns regarding this new plan of care! Sincerely, ALYSIA WardT
--- NOTE | 2023-02-07 11:33 | HP.PTREVAL ---
Dr. Reynold Dunlap, DO, It has been my pleasure to treat LISS SHARPE over the last 17 visits for L TKA. Please see the progress note below for an update on the physical therapy plan of care! Subjective: Pt. reports feeling less tight today. She has been able to do her stretching more frequently the past few days. Objective/Function: Pt. did well today. ROM 0-0-115deg passively, actively 0-2-111deg. Pt. encouraged to continue to stretch frequently at home. Pt. consents. Her strength and functional mobility is doing great. She is overall doing well, just needs to continue to work on her ROM more consistently. Plan Plan: Cont. to increase ROM until she can comfortably get to her 0-0-120deg. add in gym strengthening exercises as tolerated. Balance/Gait/Functional tests - Balance/Special Test Scores Lower Extremity Functional Score: 28 TUG Test Time Seconds: 21.5 Tug Test: 20-30sec.=variable mobility Goals Goal 1:: LTG: Pt. to be I with HEP. Goal Time Frame: 4-6 Weeks Goal Progress: Progressing Goal 2:: STG: Pt. to have increased L knee extension to 0deg. Goal Time Frame: 2 Weeks Goal Progress: Progressing Goal 3:: LTG: Pt. to have increased L knee ROM to 0-0-120deg without increase in symptoms. Goal Time Frame: 4-6 Weeks Goal Progress: Progressing Goal 4:: LTG: Pt. to ambulate with normal gait pattern without AD without increase in symptoms. Goal Time Frame: 4-6 Weeks Goal Progress: Goal Met Goal 5:: LTG: Pt. to have increased LLE strength to 5/5 throughout. Goal Time Frame: 4-6 Weeks Goal Progress: Progressing Goal 6:: LTG: Pt. to negotiate 1 flight of stairs with 1 HR without LOB with reciprocal pattern. Goal Time Frame: 4-6 Weeks Goal Progress: Progressing Anticipated Interventions Patient/Client Instruction: Educate patient on: Condition, Plan of Care, Risk Factors, Benefits of Fitness Program For the Purpose of:: To improve self management, To prevent re-injury, To improve ability to perform tasks related to life management, To improve tolerance to ADL's Therapeutic Exercise to Include: Strength training, Power training, Balance training, Postural training, Flexibilty training, Gait and locomotor training, Neuromotor development, Passive ROM, Active ROM For the Purpose of:: To decrease pain, To increase ROM, To improve nutrient delivery to tissue, To increase oxygenation perfusion, To improve muscle performance and motor function, To improve ability to perform ADL's Manual Therapy Techniques to Include: Mobilization, Passive ROM, Soft tissue mobilization For the Purpose of:: To decrease pain, To decrease swelling/inflammation, To increase ROM, To improve nutrient delivery to tissue Cryotherapy (ice pack, ice massage): Yes For the Purpose of:: To decrease pain, To decrease swelling/inflammation, To increase ROM Please do not hesitate to contact me at [phone] by phone or if you have questions or concerns regarding this new plan of care! Sincerely, ALYSIA WardT
--- NOTE | 2023-03-06 16:14 | HP.PTDCSUM ---
It has been my pleasure to treat LISS SHARPE referred by Dr. Reynold Dunlap DO, with the diagnosis of L TKA for a total of 20 visit(s). Discharge Date: 03/06/23 Please see the following information for a summary of their discharge status. Subjective: Pt. reports being 85% better overall. Pt. reports mild soreness, but nothing that limits her. Pt. is currently I with HEP and is planning on starting exercises at local gym. L knee Pain Intensity (Out of 10): 0 % Improvement: 85 Objective/Function: TU.3 sec. MMT: 5/5 throughout. ROM: 0-0-120deg with PROM, AROM 0-2-116deg. GAIT: pt. has normal gait pattern without increase in symptoms. STAIRS: Pt. does well on stairs, mild early heel off with descending, rest is normal. Pt. is currently I with HEP for all gym and stretching. Goal 1:: LTG: Pt. to be I with HEP. Goal Progress: Goal Met Goal 2:: STG: Pt. to have increased L knee extension to 0deg. Goal Progress: Goal Met Goal 3:: LTG: Pt. to have increased L knee ROM to 0-0-120deg without increase in symptoms. Goal Progress: Goal Met Goal 4:: LTG: Pt. to ambulate with normal gait pattern without AD without increase in symptoms. Goal Progress: Goal Met Goal 5:: LTG: Pt. to have increased LLE strength to 5/5 throughout. Goal Progress: Goal Met Goal 6:: LTG: Pt. to negotiate 1 flight of stairs with 1 HR without LOB with reciprocal pattern. Goal Progress: Goal Met Plan: Pt. to be Dc from PT at this point in time. Discharge Comments: Pt. was seen for her TKA. Pt. is overall doing well. I would recommend that she continues to need to stretch to maintain her ROM. She is progressing with her strengthening and is I at this point in time. Pt. to be Dc to HEP I at this point in time. If there are questions or concerns regarding this patient's physical therapy, please feel free to call me at [phone]. Thank you for the referral of this patient. Sincerely, Kelby Rayo Sipos, DPT Balance/Gait/Functional tests - Balance/Special Test Scores Lower Extremity Functional Score: 64 TUG Test Time Seconds: 21.5 Tug Test: 20-30sec.=variable mobility
== END 2023-03-06 19:00 | disposition home or self-care (01) ==
LOC: PT 14:00
PROVIDERS: PCP Internal Medicine; Referring Provider Orthopaedic Surgery; Visit Provider Orthopaedic Surgery
DX: G89.18 Other acute postprocedural pain (principal); Z96.659 Presence of unspecified artificial knee joint
CPT/HCPCS: 97110; 97140; 97161; 97164

== ENCOUNTER 2024-08-04 13:59 | Outpatient (RCR) | payer MEDICARE, MEDICAID, SELFPAY ==
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
--- NOTE | 2024-09-30 16:02 | HP.PT.NRP ---
Patient Information Patient Information: LISS SHARPE was seen in my office for initial evaluation on 08/04/24. The following Plan of Care was established for this patient: POC Established Initial Frequency: 2x /Week Initial Duration: 4 Weeks Anticipated Interventions Patient/Client Instruction: Educate patient on: Condition and Plan of Care For the Purpose of:: To decrease pain, To increase ROM, To improve muscle performance and motor function, To increase tolerance to activity/condition/position, To improve ability of physical actions for home/community/work/leisure, To improve health of tissue, To decrease soft tissue restriction, To increase flexibility/ROM and To improve endurance Therapeutic Exercise to Include: Endurance training, Balance training, Body mechanics, Postural training, Flexibilty training, In an aquatic setting, Active ROM and Dynamic Lumbar Stabilization For the Purpose of:: To decrease pain, To increase ROM, To improve muscle performance and motor function, To improve ability to perform ADL's, To increase tolerance to activity/condition/position, To improve ability of physical actions for home/community/work/leisure, To improve health of tissue, To decrease soft tissue restriction, To increase flexibility/ROM and To improve tolerance to ADL's Last Seen Last Seen: This patient was last seen in our office . Pertinent comments regarding their Physical therapy will appear below: Patient seen for PT for Aquatic Therapy for multiple joint pain but d/c due to other family issues At this point I will be discontinuing this patient from physical therapy. I would be happy to see this patient again in the future if found appropriate by the physician. Thank you! Julius Fajardo, PT, Cert MDT, OCS Balance/Gait/Functional tests Balance/Special Test Scores Lower Extremity Functional Score: 39
== END 2024-08-04 19:00 | disposition home or self-care (01) ==
LOC: PT 13:59
PROVIDERS: PCP Internal Medicine; Referring Provider Surgery Vascular Surgery; Visit Provider Surgery Vascular Surgery
DX: I87.2 Venous insufficiency (chronic) (peripheral) (principal); M15.9 Polyosteoarthritis, unspecified
CPT/HCPCS: 97162

== ENCOUNTER 2025-01-26 08:00 | Outpatient (RCR) | payer MEDICARE, MEDICAID, SELFPAY ==
[2025-01-28 09:59] VITALS: BP 143/67; PULSE 88
== END 2025-01-28 23:59 ==
LOC: BHIOP 08:00
PROVIDERS: PCP Internal Medicine; Referring Provider Psychiatry & Neurology Psychiatry; Visit Provider Psychiatry & Neurology Psychiatry
DX: F33.2 Major depressive disorder, recurrent severe without psychotic features (principal); F43.10 Post-traumatic stress disorder, unspecified
CPT/HCPCS: S9480; 90853

== ENCOUNTER 2025-01-29 07:36 | Outpatient (RCR) | payer MEDICARE, MEDICAID, SELFPAY ==
[2025-01-29 00:24] VITALS: BP 143/67; PULSE 88
== END 2025-02-28 23:59 ==
LOC: BHIOP 07:36
PROVIDERS: PCP Internal Medicine; Referring Provider Psychiatry & Neurology Psychiatry; Visit Provider Psychiatry & Neurology Psychiatry
DX: F33.2 Major depressive disorder, recurrent severe without psychotic features (principal); F43.10 Post-traumatic stress disorder, unspecified
CPT/HCPCS: S9480; 90832; 90834; 90853